=== PATIENT | male | born 1990 | race African-American/Black ===

== ENCOUNTER 2024-02-16 02:38 | Emergency (ER) | payer OTHER ==
[~2024-02-16] VITALS: Ht 185.4 cm; Wt 102.1 kg
[2024-02-16 02:40] VITALS: PULSE 114; RESP 17; TEMP 98.6
[2024-02-16] MEDS: DEXAMETHASONE SOD PHOS 10 MG/1 ML VIAL IM STA (03:10)
[2024-02-16] MEDS: KETOROLAC TROMETHAMINE 60 MG/2 ML VIAL IM STA (03:11)
[2024-02-16] MEDS ORDERED: PREDNISONE20 MG PO (05:07)
[2024-02-16] MEDS ORDERED: KETOROLAC TROME10 MG PO (05:07)
[2024-02-16 05:55] VITALS: BP 153/103; O2SAT 100
== END 2024-02-16 05:25 | disposition home or self-care (01) ==
LOC: ER 02:45
DX: S13.4XXA Sprain of ligaments of cervical spine, initial encounter (principal); I10 Essential (primary) hypertension; E11.9 Type 2 diabetes mellitus without complications; E78.5 Hyperlipidemia, unspecified; F17.210 Nicotine dependence, cigarettes, uncomplicated
CPT/HCPCS: 71046; 72125; 99283; J1100; J1885

== ENCOUNTER 2024-05-24 17:44 | Emergency (ER) | payer OTHER ==
[~2024-05-24] VITALS: Ht 185.4 cm; Wt 102.1 kg
[~2024-05-24 17:44] MED LIST: KETOROLAC TROME10 MG PO; PREDNISONE20 MG PO
[2024-05-24 17:53] VITALS: TEMP 98.4
[2024-05-24] MEDS: DEXAMETHASONE SOD PHOS 10 MG/1 ML VIAL IM ONE (20:10)
[2024-05-24 20:15] VITALS: PULSE 89; RESP 16; O2SAT 99
== END 2024-05-24 20:25 | disposition home or self-care (01) ==
LOC: ER 19:23
DX: M25.561 Pain in right knee (principal); M25.461 Effusion, right knee; X50.1XXA Overexertion from prolonged static or awkward postures, initial encounter; Y92.89 Other specified places as the place of occurrence of the external cause; I10 Essential (primary) hypertension; E11.9 Type 2 diabetes mellitus without complications; E78.5 Hyperlipidemia, unspecified; F17.210 Nicotine dependence, cigarettes, uncomplicated
CPT/HCPCS: 73562; 99283; J1100